=== PATIENT | male | born 1995 | race Caucasian/White ===

== ENCOUNTER 2020-12-04 14:50 | Emergency (ER) | payer OTHER ==
[~2020-12-04] VITALS: Ht 165.1 cm; Wt 72.6 kg
[2020-12-04] MEDS ORDERED: CIPR500 PO (16:11)
== END 2020-12-04 17:10 | disposition home or self-care (01) ==
LOC: ER 14:50
DX: S61.411A Laceration without foreign body of right hand, initial encounter (principal); W45.8XXA Other foreign body or object entering through skin, initial encounter
CPT/HCPCS: 12001; 73130; 90471; 90714; 99283-25; A9270